=== PATIENT | male | born 1995 | race Hispanic/Latino ===

== ENCOUNTER → 2018-03-16 | Outpatient (REF) | payer OTHER ==
[2018-03-16 14:05] LABS: SEMEN APPEARANCE OPAQUE (OPAQUE); SEMEN VISCOSITY LIQUID (LIQUID); SPERM CONCENTRATION 51.7 M/ml (>=15.0); WBC CONCENTRATION <=1 M/ml (<=1 M/ml)
[2018-03-16 14:06] LABS: % NORMAL FORMS < 4 % (>=4); SPERM# 51.7 M/Ejac (>=39); TOTAL FUNCTIONAL 0 M/Ejac.; TOTAL PROGRESSIVE SPERM 0.4 M/Ejac.
== END ==
LOC: M LAB REF 13:48
DX: Z31.41 Encounter for fertility testing (principal)
CPT/HCPCS: 89320

== ENCOUNTER → 2018-03-20 | Outpatient (REF) | payer OTHER ==
[2018-03-20 15:40] LABS: % NORMAL FORMS < 4 % (>=4); IMMOTILITY 99 %; NON PROGRESSIVE MOTILITY (c) 1 %; PROGRESSIVE MOTILITY (a) 0 % (>=32); SEMEN APPEARANCE OPAQUE (OPAQUE); SEMEN VISCOSITY LIQUID (LIQUID); SEMEN VOLUME 3.2 ml (4.0-5.0); SPERM CONCENTRATION 28.4 M/ml (>=15.0); TOTAL FUNCTIONAL 0 M/Ejac.; TOTAL MOTILITY 1 % (>=40); TOTAL PROGRESSIVE SPERM 0 M/Ejac.; WBC CONCENTRATION <=1 M/ml (<=1 M/ml)
== END ==
LOC: M LAB REF 15:08
DX: N46.8 Other male infertility (principal)
CPT/HCPCS: 89320

== ENCOUNTER → 2018-03-25 | Outpatient (REF) | payer OTHER ==
[2018-03-25 09:56] LABS: SEMEN APPEARANCE OPAQUE (OPAQUE); SEMEN VISCOSITY LIQUID (LIQUID); SEMEN VOLUME 2.2 ml (4.0-5.0); SPERM ABNORMAL FORMS WBC'S NOTED
[2018-03-25 09:57] LABS: IMMOTILITY 96 %; NON PROGRESSIVE MOTILITY (c) 4 %; PROGRESSIVE MOTILITY (a) 0 % (>=32); SPERM CONCENTRATION 39.7 M/ml (>=15.0); TOTAL MOTILITY 4 % (>=40); WBC CONCENTRATION <=1 M/ml (<=1 M/ml)
[2018-03-25 09:58] LABS: SPERM# 87.4 M/Ejac (>=39); TOTAL PROGRESSIVE SPERM 0 M/Ejac.
[2018-03-25 09:59] LABS: TOTAL FUNCTIONAL 0 M/Ejac.
== END ==
LOC: M LAB REF 09:46
DX: Z31.41 Encounter for fertility testing (principal)
CPT/HCPCS: 89320

== ENCOUNTER 2019-12-11 14:44 | Emergency (ER) | payer OTHER ==
[~2019-12-11] VITALS: Ht 175.3 cm; Wt 84.4 kg
[2019-12-11] MEDS ORDERED: ADVI100T PO (14:50)
[2019-12-11 15:31] LABS: BASO % 0.4 % (0.0-1.0); EOS % 0.2 % (0.0-3.0); HEMATOCRIT 45.3 % (42.0-52.0); HEMOGLOBIN 14.8 g/dl (13.5-17.5); LYMPH # 0.6 10^3/uL (1.5-5.0); LYMPH % 13.5 % (24.0-44.0); MEAN CORPUSCULAR HEMOGLOBIN 28.7 pg (27.0-33.0); MEAN CORPUSCULAR HGB CONC 32.7 g/dl (32.0-36.5); MONO # 0.9 10^3/uL (0.0-0.8); MONO % 19.2 % (0.0-5.0); NEUTROPHILS % 66.3 % (36.0-66.0); PLATELET COUNT, AUTOMATED 125 10^3/uL (150-450); RED BLOOD COUNT 5.15 10^6/uL (4.30-6.10); WHITE BLOOD COUNT 4.5 10^3/uL (4.0-10.0)
[2019-12-11] MEDS ORDERED: KETOROLAC 30 MG/ML VIAL (J1885) IV ONE (15:45)
[2019-12-11] MEDS ORDERED: NS 1,000 ML IV ONE (15:45)
[2019-12-11] MEDS ORDERED: ACETAMINOPHEN 325 MG TAB PO ONE (15:45)
[2019-12-11 16:00] LABS: INFLUENZA A AMPLIFICATION POSITIVE (NEGATIVE); INFLUENZA B AMPLIFICATION NEGATIVE (NEGATIVE)
--- NOTE | 2019-12-11 16:04 | REP ---
PA and lateral chest: There are no comparisons. The lung martinez are clear. The cardiac size is normal. The martínez, mediastinum, and skeletal structures are unremarkable. Impression: Negative PA and lateral chest. Electronically Signed by Eliot Chavez MD 12/11/2019 03:55 P
[2019-12-11 17:07] VITALS: BP 119/57
== END 2019-12-11 17:08 | disposition home or self-care (01) ==
LOC: M ED 14:44
DX: J10.1 Influenza due to other identified influenza virus with other respiratory manifestations (principal); R68.89 Other general symptoms and signs; R51 Headache
CPT/HCPCS: 71046; 80047; 85025; 87502; 96374; 99284; J1885

== ENCOUNTER 2020-09-21 10:59 | Emergency (ER) | payer OTHER ==
[~2020-09-21] VITALS: Ht 25.4 cm; Wt 91.0 kg
[~2020-09-21 10:59] MED LIST: ADVI100T PO
[2020-09-21] MEDS ORDERED: SIME125T PO (11:15)
[2020-09-21 12:36] LABS: BASO % 0.4 % (0.0-1.0); EOS % 0.4 % (0.0-3.0); HEMATOCRIT 47.4 % (42.0-52.0); HEMOGLOBIN 15.5 g/dl (13.5-17.5); LYMPH # 2.1 10^3/uL (1.5-5.0); LYMPH % 39.9 % (24.0-44.0); MEAN CORPUSCULAR HEMOGLOBIN 28.6 pg (27.0-33.0); MEAN CORPUSCULAR HGB CONC 32.7 g/dl (32.0-36.5); MEAN CORPUSCULAR VOLUME 87.5 fl (80.0-96.0); MONO # 0.5 10^3/uL (0.0-0.8); MONO % 9.2 % (0.0-5.0); NEUTROPHILS # 2.6 10^3/uL (1.5-8.5); NEUTROPHILS % 49.7 % (36.0-66.0); PLATELET COUNT, AUTOMATED 163 10^3/uL (150-450); RED BLOOD COUNT 5.42 10^6/uL (4.30-6.10); WHITE BLOOD COUNT 5.2 10^3/uL (4.0-10.0)
[2020-09-21 12:52] LABS: BLOOD UREA NITROGEN 11 MG/DL (7-18); CALCIUM LEVEL 9.5 MG/DL (8.5-10.1); CARBON DIOXIDE LEVEL 30 MEQ/L (21-32); CHLORIDE LEVEL 102 MEQ/L (98-107); CK-MB VALUE MASS 1.5 NG/ML (<3.6); CPK CREATINE PHOSPHOKINASE 186 U/L (39-308); CREATININE FOR GFR 1.07 MG/DL (0.70-1.30); GLOMERULAR FILTRATION RATE > 60.0 (>60); GLUCOSE, FASTING 94 MG/DL (70-100); MB/CK RELATIVE INDEX 0.81 (< OR =4); POTASSIUM SERUM 4.1 MEQ/L (3.5-5.1); SODIUM LEVEL 139 MEQ/L (136-145); TROPONIN I < 0.02 NG/ML (< 0.10)
--- NOTE | 2020-09-21 13:25 | REP ---
INDICATION: left sided chest pain. COMPARISON: Comparison chest x-ray December 11, 2019.. TECHNIQUE: Upright AP sitting portable exam. FINDINGS: The lungs are symmetrically aerated and free of infiltrate. Pleural angles are sharp. Cardiomediastinal silhouette is unremarkable. No significant bony abnormality is seen. IMPRESSION: Negative portable chest x-ray. <Electronically signed by Ronnie Arora > 09/21/20 1906
[2020-09-21] MEDS ORDERED: PEPC1TAB5 PO (13:54)
[2020-09-21] MEDS ORDERED: VENTAER INH (13:54)
[2020-09-21 14:48] VITALS: BP 129/60
--- NOTE | 2020-09-21 19:02 | ECGEPIP ---
[facility] - ED Test Date: 2020-09-21 Pat Name: NILA AGUILAR Department: Room: - Gender: Male [employer]: pete dasilva : 1995 Requested By: Terrance Dickson Order Number: [id number] Reading MD: Mi Connelly Measurements Intervals [place] Rate: 80 P: 68 MO: 131 QRS: 72 QRSD: 97 T: 45 QT: 357 QTc: 413 Interpretive Statements SINUS RHYTHM NO PRIOR Electronically Signed on 09-21-2020 19:02:20 EST by Mi Connelly
== END 2020-09-21 14:51 | disposition home or self-care (01) ==
LOC: M ED 10:59
DX: Z20.828 Contact with and (suspected) exposure to other viral communicable diseases (principal); R07.9 Chest pain, unspecified; Z79.51 Long term (current) use of inhaled steroids; Z79.899 Other long term (current) drug therapy
CPT/HCPCS: 36415; 71045; 80048; 82550; 82553; 84484; 85025; 85379; 93005; 99284; U0003